=== PATIENT | male | born 1980 | race African-American/Black ===

== ENCOUNTER 2017-12-24 09:27 | Inpatient (IN) | payer OTHER ==
[~2017-12-24] VITALS: Ht 182.9 cm; Wt 99.5 kg
[2017-12-24 09:55] LABS: BASOPHIL (%) 0.2 % (0-1); EOSINOPHIL (%) 0.3 % (0-5); HEMATOCRIT 33.9 % (38.0-50.0); HEMOGLOBIN 11.4 G/DL (12.5-16.6); IMMATURE GRANULOCYTE (%) 0.6 % (0.0-0.7); LYMPHOCYTE (%) 12.7 % (15-42); LYMPHOCYTE COUNT 1.1 K/uL (1.0-2.8); MCH 28.9 PG (29.0-34.0); MCHC 33.6 G/DL (30.0-36.0); MONOCYTE (%) 6.9 % (3-12); MONOCYTE COUNT 0.6 K/uL (0-0.8); NEUTROPHIL (%) 79.3 % (45-76); PLATELET COUNT 387 K/uL (156-360); RBC DIS.WIDTH-CV 12.5 % (11.8-14.6); RBC DIS.WIDTH-SD 39.5 % (39-53); RED BLOOD COUNT 3.94 M/uL (4.00-5.50); WHITE BLOOD COUNT 8.9 K/uL (4.1-10.2)
[2017-12-24 10:02] LABS: CHLORIDE 104 mEq/L (99-109); INTER. NORMALIZED RATIO 1.2; POTASSIUM 5.3 mEq/L (3.7-5.4); SODIUM 138 mEq/L (136-147)
[2017-12-24 10:04] LABS: GLUCOSE 104 mg/dL (70-99); PTT 31.3 SEC (25-37)
[2017-12-24 10:08] LABS: CREATININE 13.9 mg/dL (0.6-1.3)
[2017-12-24 10:09] LABS: GFR ESTIMATE (CALCULATED) 4 mL/min/ (58.99-99999); UREA NITROGEN (BUN) 92 mg/dL (9-23)
[2017-12-24 10:13] LABS: BASE EXCESS -6.3 mEq/L (-3 to +3); CARBOXY HGB 0.2 % (0-5); METHEMOGLOBIN 0.5 % (0-1.5); PCO2 36 mm Hg (35-45); PO2 171 mm Hg (80-100); pH 7.33 (7.35-7.45)
[2017-12-24 10:14] LABS: COMMENTS - BLOOD GASES A+C+; DEVICE NRBM; O2 FLOW 15 L/MIN; SITE RR
[2017-12-24 10:15] LABS: TROP-I INTERPRETATION NEGATIVE; TROPONIN-I 0.07 ng/mL (0.0-0.30)
[2017-12-24 12:17] LABS: APPEARANCE CLEAR ((CLEAR)); BILIRUBIN NEGATIVE; BLOOD SMALL; COLOR COLORLESS ((YELLOW)); GLUCOSE (STRIP) NEGATIVE; KETONES NEGATIVE; LEUKOCYTES NEGATIVE; NITRITE NEGATIVE; PROTEIN (STRIP) NEGATIVE; SPECIFIC GRAVITY 1.008 (1.000-1.030); UROBILINOGEN 0.2 MG/DL (0.2-1.0)
[2017-12-24 12:21] LABS: BACTERIA NONE SEEN /HPF; EPITHELIAL CELLS RARE /HPF; MUCUS NONE SEEN /LPF; RED BLOOD CELLS 0-5 /HPF (0-5); UCUL ADDED? NO; WHITE BLOOD CELLS 0-5 /HPF (0-5)
[2017-12-24 14:15] LABS: BENZODIAZEPINES, URINE SCREEN Negative (200 ng/mL); UR CREATININE CONCENTRATION 63.3 MG/DL
[2017-12-24 15:10] LABS: URINE OSMOLALITY 271 MOSM/KG (300-1100)
[2017-12-24 18:44] LABS: C-REACTIVE PROTEIN 95.2 MG/L (0-10)
[2017-12-24 18:59] LABS: TROP-I INTERPRETATION NEGATIVE; TROPONIN-I 0.14 ng/mL (0.0-0.30)
[2017-12-24 20:44] VITALS: BP 171/101
[2017-12-24 21:45] VITALS: BP 161/105
[2017-12-25 00:21] VITALS: BP 124/79
[2017-12-25 01:00] LABS: TROP-I INTERPRETATION NEGATIVE; TROPONIN-I 0.13 ng/mL (0.0-0.30)
[2017-12-25 05:24] VITALS: BP 135/84
[2017-12-25 05:47] LABS: HEMATOCRIT 31.4 % (38.0-50.0); HEMOGLOBIN 10.5 G/DL (12.5-16.6); MCH 29.2 PG (29.0-34.0); MCHC 33.4 G/DL (30.0-36.0); MCV 87.2 FL (86-99); PLATELET COUNT 365 K/uL (156-360); RBC DIS.WIDTH-CV 12.7 % (11.8-14.6); RBC DIS.WIDTH-SD 40.9 % (39-53); WHITE BLOOD COUNT 6.5 K/uL (4.1-10.2)
[2017-12-25 05:54] LABS: ALBUMIN 3.6 g/dL (3.2-4.8); CHLORIDE 102 mEq/L (99-109); SODIUM 136 mEq/L (136-147)
[2017-12-25 05:56] LABS: GLUCOSE 89 mg/dL (70-99)
[2017-12-25 06:00] LABS: CREATININE 14.5 mg/dL (0.6-1.3); GFR ESTIMATE (CALCULATED) 5 mL/min/ (58.99-99999); PHOSPHORUS 7.7 mg/dL (2.5-4.9)
[2017-12-25 06:01] LABS: UREA NITROGEN (BUN) 100 mg/dL (9-23)
[2017-12-25 06:29] LABS: POTASSIUM 6.9 mEq/L (3.7-5.4)
[2017-12-25 10:53] LABS: HEPATITIS B SURFACE ANTIGEN Nonreactive
[2017-12-25 10:54] LABS: HEPATITIS C ANTIBODY Nonreactive
[2017-12-25 10:55] LABS: ANTI-HEPATITIS B CORE (IGM) Nonreactive
[2017-12-25 11:05] LABS: HEPATITIS B SURFACE ANTIBODY REACTIVE
[2017-12-25 11:48] VITALS: BP 173/101
[2017-12-25 12:00] VITALS: BP 135/86
[2017-12-25 15:52] VITALS: BP 141/80
[2017-12-25 20:11] VITALS: BP 134/85
[2017-12-26 01:14] VITALS: BP 146/93
[2017-12-26 05:08] VITALS: BP 156/85
[2017-12-26 06:24] LABS: HEMATOCRIT 29.4 % (38.0-50.0); HEMOGLOBIN 9.7 G/DL (12.5-16.6); MCH 28.9 PG (29.0-34.0); MCV 87.5 FL (86-99); PLATELET COUNT 340 K/uL (156-360); RBC DIS.WIDTH-CV 12.7 % (11.8-14.6); RBC DIS.WIDTH-SD 40.4 % (39-53); RED BLOOD COUNT 3.36 M/uL (4.00-5.50); WHITE BLOOD COUNT 5.6 K/uL (4.1-10.2)
[2017-12-26 06:30] LABS: ALBUMIN 3.3 G/DL (3.2-4.8); CHLORIDE 100 MEQ/L (99-109); GLUCOSE 75 mg/dL (70-99); PHOSPHORUS 7.9 mg/dL (2.5-4.9); SODIUM 138 MEQ/L (136-147); UREA NITROGEN (BUN) 77 mg/dL (9-23)
[2017-12-26 06:32] LABS: CREATININE 11.9 MG/DL (0.6-1.3); GFR ESTIMATE (CALCULATED) 6 mL/min/ (58.99-99999); POTASSIUM 5.3 MEQ/L (3.7-5.4)
[2017-12-26 07:13] LABS: IRON 28 MCG/DL (35-150); TRANSFERRIN (TIBC) 201.3 mg/dL (215-380); TRANSFERRIN SATUR. 14 % (20-55)
[2017-12-26 07:15] VITALS: BP 138/93
[2017-12-26 08:19] LABS: FERRITIN 286 NG/ML (22-322)
[2017-12-26 14:06] LABS: Neutrophil Cytoplasmic Aby Negative (Negative)
[2017-12-26 16:08] VITALS: BP 138/81
[2017-12-26 19:35] VITALS: BP 139/93
[2017-12-27] VITALS (7 sets, daily range): BP systolic 123–140; BP diastolic 70–95
[2017-12-27 05:30] LABS: BASOPHIL (%) 0.2 % (0-1); EOSINOPHIL (%) 0.9 % (0-5); EOSINOPHIL COUNT 0.1 K/uL (0-0.3); HEMATOCRIT 29.3 % (38.0-50.0); HEMOGLOBIN 9.4 G/DL (12.5-16.6); IMMATURE GRANULOCYTE (%) 0.4 % (0.0-0.7); LYMPHOCYTE (%) 18.7 % (15-42); LYMPHOCYTE COUNT 1.1 K/uL (1.0-2.8); MCH 28.1 PG (29.0-34.0); MCHC 32.1 G/DL (30.0-36.0); MCV 87.5 FL (86-99); MONOCYTE (%) 11.3 % (3-12); MONOCYTE COUNT 0.6 K/uL (0-0.8); NEUTROPHIL (%) 68.5 % (45-76); NEUTROPHIL COUNT 3.9 K/uL (1.8-6.4); PLATELET COUNT 357 K/uL (156-360); RBC DIS.WIDTH-CV 12.8 % (11.8-14.6); RBC DIS.WIDTH-SD 41.1 % (39-53); RED BLOOD COUNT 3.35 M/uL (4.00-5.50); WHITE BLOOD COUNT 5.7 K/uL (4.1-10.2)
[2017-12-27 06:03] LABS: ALBUMIN 3.5 G/DL (3.2-4.8); CHLORIDE 99 MEQ/L (99-109); GFR ESTIMATE (CALCULATED) 8 mL/min/ (58.99-99999); GLUCOSE 81 mg/dL (70-99); PHOSPHORUS 8.2 mg/dL (2.5-4.9); POTASSIUM 4.9 MEQ/L (3.7-5.4); SODIUM 137 MEQ/L (136-147); UREA NITROGEN (BUN) 51 mg/dL (9-23)
[2017-12-27 06:04] LABS: CREATININE 9.1 MG/DL (0.6-1.3)
[2017-12-28 06:04] LABS: BASOPHIL (%) 0.2 % (0-1); EOSINOPHIL (%) 0.2 % (0-5); HEMATOCRIT 30.7 % (38.0-50.0); HEMOGLOBIN 9.8 G/DL (12.5-16.6); IMMATURE GRANULOCYTE (%) 0.2 % (0.0-0.7); LYMPHOCYTE (%) 14.8 % (15-42); LYMPHOCYTE COUNT 0.9 K/uL (1.0-2.8); MCH 28.6 PG (29.0-34.0); MCHC 31.9 G/DL (30.0-36.0); MCV 89.5 FL (86-99); MONOCYTE (%) 10.4 % (3-12); MONOCYTE COUNT 0.6 K/uL (0-0.8); NEUTROPHIL (%) 74.2 % (45-76); NEUTROPHIL COUNT 4.3 K/uL (1.8-6.4); PLATELET COUNT 421 K/uL (156-360); RBC DIS.WIDTH-CV 12.9 % (11.8-14.6); RBC DIS.WIDTH-SD 42.5 % (39-53); RED BLOOD COUNT 3.43 M/uL (4.00-5.50); WHITE BLOOD COUNT 5.8 K/uL (4.1-10.2)
[2017-12-28 06:39] LABS: CHLORIDE 103 MEQ/L (99-109); GLUCOSE 91 mg/dL (70-99); SODIUM 138 MEQ/L (136-147); UREA NITROGEN (BUN) 44 mg/dL (9-23)
[2017-12-28 06:59] LABS: CREATININE 5.3 MG/DL (0.6-1.3); GFR ESTIMATE (CALCULATED) 16 mL/min/ (58.99-99999); POTASSIUM 5.9 MEQ/L (3.7-5.4)
[2017-12-28 07:41] VITALS: BP 120/64
[2017-12-28 10:34] VITALS: BP 119/74
[2017-12-28 15:52] VITALS: BP 118/69
[2017-12-28 18:52] VITALS: BP 130/80
[2017-12-28 23:16] VITALS: BP 137/89
[2017-12-29 01:27] VITALS: BP 120/69
[2017-12-29 03:50] VITALS: BP 121/75
[2017-12-29 06:14] LABS: BASOPHIL (%) 0.5 % (0-1); EOSINOPHIL (%) 2.6 % (0-5); EOSINOPHIL COUNT 0.2 K/uL (0-0.3); HEMATOCRIT 34.1 % (38.0-50.0); HEMOGLOBIN 10.6 G/DL (12.5-16.6); IMMATURE GRANULOCYTE (%) 0.3 % (0.0-0.7); LYMPHOCYTE (%) 23.1 % (15-42); LYMPHOCYTE COUNT 1.4 K/uL (1.0-2.8); MCH 28.2 PG (29.0-34.0); MCHC 31.1 G/DL (30.0-36.0); MCV 90.7 FL (86-99); MONOCYTE (%) 8.7 % (3-12); MONOCYTE COUNT 0.5 K/uL (0-0.8); NEUTROPHIL (%) 64.8 % (45-76); PLATELET COUNT 431 K/uL (156-360); RBC DIS.WIDTH-SD 42.7 % (39-53); RED BLOOD COUNT 3.76 M/uL (4.00-5.50); WHITE BLOOD COUNT 6.2 K/uL (4.1-10.2)
[2017-12-29 06:30] LABS: ALBUMIN 3.9 G/DL (3.2-4.8); CHLORIDE 105 MEQ/L (99-109); GLUCOSE 82 mg/dL (70-99); POTASSIUM 4.9 MEQ/L (3.7-5.4); SODIUM 141 MEQ/L (136-147); UREA NITROGEN (BUN) 28 mg/dL (9-23)
[2017-12-29 06:32] LABS: CREATININE 2.8 MG/DL (0.6-1.3); GFR ESTIMATE (CALCULATED) 33 mL/min/ (58.99-99999); PHOSPHORUS 4.9 mg/dL (2.5-4.9)
[2017-12-29 07:47] VITALS: BP 160/92
[2017-12-29 11:34] VITALS: BP 115/65
[2017-12-29 15:40] VITALS: BP 121/71
[2017-12-29 23:35] VITALS: BP 128/78
[2017-12-30 06:42] LABS: ALBUMIN 3.9 G/DL (3.2-4.8); CHLORIDE 104 MEQ/L (99-109); GFR ESTIMATE (CALCULATED) 41 mL/min/ (58.99-99999); GLUCOSE 90 mg/dL (70-99); POTASSIUM 4.6 MEQ/L (3.7-5.4); SODIUM 139 MEQ/L (136-147); UREA NITROGEN (BUN) 27 mg/dL (9-23)
[2017-12-30 06:44] LABS: CREATININE 2.3 MG/DL (0.6-1.3)
[2017-12-30 08:12] VITALS: BP 125/65
[2017-12-30 08:16] LABS: HEMATOCRIT 34.1 % (38.0-50.0); HEMOGLOBIN 10.5 G/DL (12.5-16.6); MCH 27.8 PG (29.0-34.0); MCHC 30.8 G/DL (30.0-36.0); MCV 90.2 FL (86-99); PLATELET COUNT 488 K/uL (156-360); RBC DIS.WIDTH-CV 12.7 % (11.8-14.6); RBC DIS.WIDTH-SD 41.7 % (39-53); RED BLOOD COUNT 3.78 M/uL (4.00-5.50); WHITE BLOOD COUNT 6.5 K/uL (4.1-10.2)
[2017-12-30 16:25] VITALS: BP 117/71
[2017-12-30 23:25] VITALS: BP 130/68
[2017-12-31 06:44] LABS: HEMATOCRIT 33.6 % (38.0-50.0); HEMOGLOBIN 10.9 G/DL (12.5-16.6); MCH 28.8 PG (29.0-34.0); MCHC 32.4 G/DL (30.0-36.0); MCV 88.9 FL (86-99); PLATELET COUNT 441 K/uL (156-360); RBC DIS.WIDTH-CV 12.6 % (11.8-14.6); RBC DIS.WIDTH-SD 41.2 % (39-53); RED BLOOD COUNT 3.78 M/uL (4.00-5.50); WHITE BLOOD COUNT 5.5 K/uL (4.1-10.2)
[2017-12-31 06:56] LABS: ALBUMIN 3.9 G/DL (3.2-4.8); CHLORIDE 103 MEQ/L (99-109); CREATININE 1.9 MG/DL (0.6-1.3); GFR ESTIMATE (CALCULATED) 51 mL/min/ (58.99-99999); GLUCOSE 90 mg/dL (70-99); PHOSPHORUS 4.1 mg/dL (2.5-4.9); POTASSIUM 4.5 MEQ/L (3.7-5.4); SODIUM 137 MEQ/L (136-147); UREA NITROGEN (BUN) 26 mg/dL (9-23)
[2017-12-31 07:55] VITALS: BP 111/65
[2017-12-31 11:34] VITALS: BP 123/77
[2017-12-31 15:50] VITALS: BP 130/79
[2017-12-31 23:07] VITALS: BP 127/65
[2018-01-01 06:55] LABS: HEMATOCRIT 32.8 % (38.0-50.0); HEMOGLOBIN 10.7 G/DL (12.5-16.6); MCH 28.8 PG (29.0-34.0); MCHC 32.6 G/DL (30.0-36.0); MCV 88.2 FL (86-99); PLATELET COUNT 436 K/uL (156-360); RBC DIS.WIDTH-CV 12.4 % (11.8-14.6); RBC DIS.WIDTH-SD 39.9 % (39-53); RED BLOOD COUNT 3.72 M/uL (4.00-5.50); WHITE BLOOD COUNT 5.4 K/uL (4.1-10.2)
[2018-01-01 07:30] LABS: CHLORIDE 101 MEQ/L (99-109); GFR ESTIMATE (CALCULATED) 37 mL/min/ (58.99-99999); GLUCOSE 80 mg/dL (70-99); POTASSIUM 4.2 MEQ/L (3.7-5.4); SODIUM 133 MEQ/L (136-147); UREA NITROGEN (BUN) 33 mg/dL (9-23)
[2018-01-01 07:39] VITALS: BP 140/86
[2018-01-01 07:43] LABS: CREATININE 2.5 MG/DL (0.6-1.3)
[2018-01-01 10:35] LABS: APPEARANCE CLOUDY ((CLEAR)); BILIRUBIN NEGATIVE; BLOOD LARGE; COLOR YELLOW ((YELLOW)); GLUCOSE (STRIP) NEGATIVE; KETONES NEGATIVE; LEUKOCYTES LARGE; NITRITE NEGATIVE; PROTEIN (STRIP) 100; SPECIFIC GRAVITY 1.006 (1.000-1.030); UROBILINOGEN 0.2 MG/DL (0.2-1.0)
[2018-01-01 11:08] LABS: EPITHELIAL CELLS 1+ /HPF; MUCUS 1+ /LPF
[2018-01-01 11:09] LABS: RED BLOOD CELLS 15-20 /HPF (0-5)
[2018-01-01 11:10] LABS: BACTERIA RARE /HPF; WHITE BLOOD CELLS 20-30 /HPF (0-5)
[2018-01-01] MEDS ORDERED: TRAMADOL HCL50 MG PO (11:17)
[2018-01-01] MEDS ORDERED: OXYCONTIN15 MG PO (11:17)
[2018-01-01] MEDS ORDERED: LABETALOL HCL100 MG PO (11:50)
[2018-01-01 13:04] LABS: CHLORIDE 102 MEQ/L (99-109); CREATININE 2.4 MG/DL (0.6-1.3); GFR ESTIMATE (CALCULATED) 39 mL/min/ (58.99-99999); GLUCOSE 81 mg/dL (70-99); POTASSIUM 4.8 MEQ/L (3.7-5.4); SODIUM 134 MEQ/L (136-147); UREA NITROGEN (BUN) 34 mg/dL (9-23)
[2018-01-01 16:43] VITALS: BP 132/69
== END 2018-01-01 17:06 | disposition home or self-care (01) | DRG 682 ==
LOC: EME 09:27 → 4EAST 11:05 → EDOF 11:05 → 5EAST 11:05 → ENRESERV 11:16 → 4EAST 20:02 → ENRESERV 12-28 00:55 → 5EAST 12-28 01:56
PROVIDERS: Emergency Medicine; Internal Medicine; Internal Medicine Nephrology; Physician Assistant
PROC: 02HV33Z Insertion of Infusion Device into Superior Vena Cava, Percutaneous Approach (ICD-10-PCS; principal; 2017-12-25)
PROC: 5A1D70Z Performance of Urinary Filtration, Intermittent, Less than 6 Hours Per Day (ICD-10-PCS; principal; 2017-12-25)
PROC: BT171ZZ Fluoroscopy of Left Ureter using Low Osmolar Contrast (ICD-10-PCS; 2017-12-27)
PROC: 0T788DZ Dilation of Bilateral Ureters with Intraluminal Device, Via Natural or Artificial Opening Endoscopic (ICD-10-PCS; 2017-12-27)
PROC: BT161ZZ Fluoroscopy of Right Ureter using Low Osmolar Contrast (ICD-10-PCS; 2017-12-27)
PROC: 0WBH3ZX Excision of Retroperitoneum, Percutaneous Approach, Diagnostic (ICD-10-PCS; 2017-12-28)
DX: N17.9 Acute kidney failure, unspecified (principal); I13.2 Hypertensive heart and chronic kidney disease with heart failure and with stage 5 chronic kidney disease, or end stage renal disease; J96.01 Acute respiratory failure with hypoxia; N18.6 End stage renal disease; I50.20 Unspecified systolic (congestive) heart failure; J18.9 Pneumonia, unspecified organism; E87.5 Hyperkalemia; N13.1 Hydronephrosis with ureteral stricture, not elsewhere classified; K68.9 Other disorders of retroperitoneum; E87.2 Acidosis; D63.1 Anemia in chronic kidney disease; I27.20 Pulmonary hypertension, unspecified; I49.3 Ventricular premature depolarization; M54.5 Low back pain; Z87.891 Personal history of nicotine dependence; Z82.49 Family history of ischemic heart disease and other diseases of the circulatory system; Z83.2 Family history of diseases of the blood and blood-forming organs and certain disorders involving the immune mechanism; Z83.3 Family history of diabetes mellitus
CPT/HCPCS: 36600; 71045; 74176; 74420; 76770; 77012; 80048; 80048 91; 80069; 80306 90; 81003; 82436; 82570; 82728; 82803; 82948; 83540; 83880; 83930; 83935; 84133; 84156; 84300; 84466; 84484; 85025; 85027; 85610; 85651; 85730; 86021 90; 86038; 86140; 86235; 86430; 86705; 86706; 86803; 87070; 87086; 87205; 87340; 88305; 93005; 93306; 94640; 94640 76; 94760; 94799; 99202; 99281; 99285; C1751; C1752; C1758; C1769; C2625; J0131; J0456; J0610; J0696; J1100; J1170; J1644; J1815; J1940; J2250; J2405; J3010; J7050

== ENCOUNTER 2018-01-13 10:27 | Emergency (ER) | payer OTHER ==
[~2018-01-13] VITALS: Ht 182.9 cm; Wt 99.5 kg
[~2018-01-13 10:27] MED LIST: LABETALOL HCL100 MG PO; OXYCONTIN15 MG PO; TRAMADOL HCL50 MG PO
[2018-01-13 13:18] LABS: HEMATOCRIT 29.9 % (38.0-50.0); HEMOGLOBIN 9.8 G/DL (12.5-16.6); MCH 28.9 PG (29.0-34.0); MCHC 32.8 G/DL (30.0-36.0); MCV 88.2 FL (86-99); RBC DIS.WIDTH-CV 12.4 % (11.8-14.6); RBC DIS.WIDTH-SD 40.3 % (39-53); RED BLOOD COUNT 3.39 M/uL (4.00-5.50); WHITE BLOOD COUNT 6.7 K/uL (4.1-10.2)
[2018-01-13 13:26] LABS: CHLORIDE 109 mEq/L (99-109); POTASSIUM 4.6 mEq/L (3.7-5.4); SODIUM 139 mEq/L (136-147)
[2018-01-13 13:28] LABS: GLUCOSE 85 mg/dL (70-99)
[2018-01-13 13:32] LABS: CREATININE 3.3 mg/dL (0.6-1.3); GFR ESTIMATE (CALCULATED) 27 mL/min/ (58.99-99999)
[2018-01-13 13:33] LABS: UREA NITROGEN (BUN) 35 mg/dL (9-23)
[2018-01-13 13:39] LABS: TROP-I INTERPRETATION NEGATIVE; TROPONIN-I < 0.01 ng/mL (0.0-0.30)
[2018-01-13 14:04] LABS: PLAT.SUFFICIENCY ADEQUATE
[2018-01-13 14:09] LABS: PLATELET COUNT 301 K/uL (156-360)
[2018-01-13 16:23] LABS: APPEARANCE SL.HAZY ((CLEAR)); BILIRUBIN NEGATIVE; BLOOD LARGE; COLOR STRAW ((YELLOW)); GLUCOSE (STRIP) NEGATIVE; KETONES NEGATIVE; LEUKOCYTES LARGE; NITRITE NEGATIVE; PROTEIN (STRIP) NEGATIVE; SPECIFIC GRAVITY 1.008 (1.000-1.030); UROBILINOGEN 0.2 MG/DL (0.2-1.0)
[2018-01-13 16:39] LABS: BACTERIA NONE SEEN /HPF; EPITHELIAL CELLS RARE /HPF; MUCUS TRACE /LPF; RED BLOOD CELLS TNTC /HPF (0-5); UCUL ADDED? YES
[2018-01-13] MEDS ORDERED: LEVAQUIN750 MG PO (17:00)
[2018-01-13] MEDS ORDERED: OXYCONTIN15 MG PO (17:29)
[2018-01-13 17:46] VITALS: BP 121/90
== END 2018-01-13 17:56 | disposition home or self-care (01) ==
LOC: EME 10:27
PROVIDERS: Emergency Medicine Emergency Medical Services
DX: N39.0 Urinary tract infection, site not specified (principal); E86.0 Dehydration; R51 Headache; R42 Dizziness and giddiness; I11.0 Hypertensive heart disease with heart failure; I50.9 Heart failure, unspecified; Z87.891 Personal history of nicotine dependence
CPT/HCPCS: 71046; 74176; 80048; 81003; 83880; 84484; 85027; 87086; 93005; 99281; 99283